=== PATIENT | female | born 1930 | race Caucasian/White ===

== ENCOUNTER 2017-09-19 14:26 | Emergency (ER) | payer MEDICARE, MEDICAID ==
[2017-09-19] MEDS ORDERED: Ondansetron 4 MG/2 ML SDV IVPUSH ONE (15:13)
[2017-09-19] MEDS ORDERED: HYDROmorphone 2 MG/ML SDV IVPUSH ONE ×2 (15:13→15:33)
[2017-09-19] MEDS ORDERED: Sodium Chloride 0.9% 500 ML IV ONE (15:15)
[2017-09-19] MEDS ORDERED: Isosorbide Mononitrate 30 MG Tab.ER PO ONE (15:24)
[2017-09-19] MEDS: Sodium Chloride 0.9% 1,000 ML IV SCH ×2 (15:43→16:12)
[2017-09-19] MEDS ORDERED: Iopamidol 755 Mg/ML 100 ML Bottle IV ONE (16:00)
[2017-09-19] MEDS ORDERED: Diatrizoate Meglumine/Diatrizoate Sodium 37% 30 ML Bottle PO SCH (16:00)
[2017-09-19] MEDS ORDERED: Sodium Chloride 0.9% 1,000 ML IV SCH (16:15)
[2017-09-19] MEDS ORDERED: Ertapenem 1 GM in Sodium Chloride 0.9% 50 ML IV ONE (18:27)
[2017-09-19] MEDS ORDERED: diphenhydrAMINE 50 MG/ML SDV IVPUSH ONE (18:29)
--- NOTE | 2017-09-20 09:47 | CT ---
INDICATION: Abdominal mesh surgery 1990 for hernia, right lower quadrant and right upper quadrant abdominal pain, guarding, rebound, suggestion of peritonitis, question bowel obstruction, torsion or strangulation, ischemia. CT ABDOMEN AND PELVIS WITH CONTRAST: Spiral 2.5-mm axial sections were obtained through the abdomen and pelvis with oral and IV contrast (100 mL Isovue -370 at 1.5 mL per second), with sagittal and coronal reconstructions, 2017. No comparison study was available. Total Exam DLP = 1548.59 mGy-cm. The lower lung gustafson and pleural spaces visualized showed no evidence of a definite active infiltrate or effusion. There appears to be free air in the abdomen, compatible with ruptured viscus - bowel perforation - correlate clinically. Upright chest x-ray will be obtained for further evaluation after discussion with Dr. Bruce. The heart appears slightly enlarged with coronary artery calcifications. The liver appears to be grossly normal. However, at the gallbladder, there is abnormality with multiple calculi, thickening of the wall, and pericholecystic fat stranding and fluid, suggesting acute cholecystitis. A minimal amount of fluid extends into the paracolic gutter on the right. There is a gas bubble at the gallbladder, which could be within the gallbladder or possibly represent free air. If within the gallbladder, it may represent emphysematous infection. The appendix appeared normal. No definite evidence of bowel obstruction was identified, despite the apparent presence of a large amount of free air in the abdomen. Gas and stool is noted in the rectum and air is scattered throughout the colon. The spleen was unremarkable. The pancreas is markedly fatty replaced. The common bile duct did not appear to be enlarged. There is a 15.6-mm low-density lesion in the left adrenal, which may represent an adrenal adenoma. However, follow-up is recommended, since its density is relatively high at about 45 Hounsfield units. Multiple cystic structures are noted at the kidneys - basically one for each kidney - in the upper pole on the right posteriorly 21-mm cystic structure is noted and in the upper pole medial cortex exophytically, there is approximately a 1.25-cm purely cystic appearing lesion. Areas of cortical excavation are noted at the kidneys, compatible with scarring, most likely from bouts of pyelonephritis. An additional tiny cyst is suggested off the mid pole posteromedial cortex of the right kidney. Calcifications are noted in the aorta, celiac axis, superior mesenteric artery, renal arteries, and iliac arteries. Sigmoid diverticulosis and descending diverticulosis, as well as transverse diverticulosis are suggested, without definite evidence of diverticulitis. There is a moderate amount of free fluid in the pelvis, compatible with localized ascites in that area. It may be on the basis of tracking from the right upper quadrant, however. No focal abnormality in the pelvis was identified to strongly suggest an etiology there for the fluid. No other mass lesions, organomegaly, or free fluid collections were identified in the abdomen or pelvis. IMPRESSION: 1. Possible acute cholecystitis with peritonitis and ascites. 2. Free air compatible with ruptured viscus - perforation of the bowel. Exact site indeterminate. Suspect anterior loops of bowel and with diverticulosis coli, suspect a ruptured diverticulum as the etiology. 3. ASD. 4. Cystic changes and scarring of the kidneys. 5. Degenerative changes, disk disease, compression fracture of indeterminate age lumbosacral spine, and thoracolumbar spine degenerative changes. 6. Diverticulosis coli without definite evidence of diverticulitis. 7. ASHD with suggestion of mild cardiomegaly. CT PELVIS: Examination of the pelvis was obtained by CT, as noted above, and revealed the gallbladder to still be visualized in the upper pelvis with evidence of cholecystitis and pericholecystic fluid and peritonitis. Arterial calcifications are noted. Free air is suggested. Perforation of bowel is strongly suggested secondarily. Diverticulosis coli, without definite evidence of diverticulitis is noted. Fluid in the pelvis is noted, compatible with ascites, and may be on the basis of cholecystitis, but should be correlated clinically. Report was called to Dr. Bruce at 1650 hours, 09/19/2017. [facility]
--- NOTE | 2017-09-20 16:39 | CR ---
INDICATION: Free air above diaphragm? CHEST: A single upright view of the chest was obtained and revealed what appears to be free air in the abdomen, well below the diaphragm leaves. The heart is enlarged. The aorta is tortuous and calcified. Pulmonary vasculature is prominent and congested, compatible with CHF. Shoulder prosthesis is noted on the right. IMPRESSION: ASHD with cardiomegaly and CHF. MTDD
--- NOTE | 2017-09-21 15:27 | ER ---
DATE SEEN: 09/19/2017 TIME SEEN: The patient was seen at 1440 hours. HISTORY OF PRESENT ILLNESS: The patient is a resident of [facility] who had onset of severe sharp abdominal right upper quadrant pain at 11:30 a.m. this morning. The pain radiated to her shoulder, but she states she has symptoms in her shoulder when she has anxiety. In fact, she has had pain like this in the past which was very symptomatic when she would have anxiety. She denies eating unusual food. Denies fever, chills, cough, sore throat, or lightheadedness. She denies any nausea, vomiting, or diarrhea. No blood in the stool or black tarry stool, or GERD or hepatitis or vomiting. No hematochezia or hemoptysis. PAST MEDICAL HISTORY: She has a past medical history of: 1. Presbycusis. 2. Glaucoma. The glaucoma was not treated because she could not lay down for surgery. 3. Asthma. 4. Hypertension. 5. Had mesh in her abdomen for surgery in the past. 6. Bilateral cataracts, surgery not performed, but she has cataracts. 7. Osteoarthritis of hips and knees, so severe, which precludes her from walking or even doing surgery because she is too much of a surgical risk. 8. Incontinence of urine. 9. Anxiety and nerves. 10.Pain in her feet and lower extremities (peripheral neuropathy, peripheral artery disease, stasis dermatitis, lymphedema). 11.No history of chest pain or angina. PHYSICAL EXAMINATION: VITAL SIGNS: Blood pressure 206/87, came down to 186/68. 206/87 was present when she had the hypertension event. Respiratory rate 16, 97% oxygen saturation, pulse 77, and temperature 36.4 degrees. The patient is 83.91 kg and BMI is 33.8 kg/m2. HEENT: The patient is hard of hearing. She sits up. She does not lay down because it is difficult for her to breathe if she lays down. She has mild hair loss. She is 87 years old, pretty articulate even though she has slight decreased hearing. She is wearing glasses. TMs negative. Pharynx without abnormality. Teeth are in relatively good condition. No mandibular pain. NECK: No cervical adenopathy, thyromegaly, or masses in the neck. LUNGS: Clear without rales, rhonchi, or wheezes. HEART: S1, S2. No irregular rate or rhythm. No murmur. ABDOMEN: Marked pain and more distention, marked percussion tympany. Bowel sounds are present. No tinkles noted. Markedly distended, marked pain with moderate rebound, marked guarding. The patient has difficulty sitting up because she has so much pain in lower abdomen (that is where she had her mesh according to the basis of her impression). RECTAL: Not performed. LOWER EXTREMITIES: Without pedal edema. Deep tendon reflexes hypoactive in lower extremities. NEUROLOGICAL: Cranial nerves 2 through 12 intact. Hearing decreased. IMAGING DATA: CAT scan was performed, demonstrated pericholecystic fat stranding with many gallstones, atrophy of the pancreas, common bile duct is mildly dilated. No intrahepatic disease. She has gas noted and multiple free air noted in the abdomen. No evidence for obstructive bowel disease. LABORATORY DATA: White count 24,000, with PMNs 87, bands 2, lymphocytes 3, monocytes 8, hemoglobin 15, platelets 426,000 (thrombocytosis). Electrolytes: sodium 137, potassium 4.7, chloride 99, bicarb 30, BUN 25, and creatinine 1.1. GFR 47. BUN/creatinine ratio 22.7 (mild dehydration). Glucose - reactive glucose elevation 170. Lactic acid is normal 1.4. Calcium 9.4. Troponin less than 0.017. Urinalysis appears to be a soiled specimen, purposely I did not do a cath specimen. 15 ketones, large occult blood, 100 rbc's, 0-5 wbc's, many bacteria, but few squamous cells. ASSESSMENT: Possible asymptomatic bacteriuria. The patient has not had symptoms. The patient's status was discussed with Dr. Casas. It is felt that because she had the gangrene and gangrenous gallbladder, and the risk of having a need to be on a respirator, and also need arterial lines with potential for sepsis, I felt that our [facility] [place] would not have the services available for the patient. The patient subsequently was transferred to [facility] in [place]. Dr. Foote was called and discussed, the patient is to go directly to the emergency room. She will go from there directly to surgery. DIAGNOSES: 1. Cholecystitis with cholelithiasis with gangrenous gallbladder with free air in the abdomen, possible gangrenous involvement of the duodenum. 2. Obesity. 3. Hypertension. 4. Hypothyroidism, treated. 5. No evidence for dementia. 6. Thrombocytosis. 7. Bandemia. 8. Leukocytosis with bandemia. 9. Cataracts. 10.Glaucoma. 11.Hypertension. 12.History of asthma, not evident on exam. 13.On examination, bilateral superficial upper 2/3rd stocking distribution of erythema that is pink with marked induration, irregular scarring of the skin with induration - lymphedema. No suggestion of infection. 14.Arthrogryposis. 15.Incontinence, etiology indeterminate. 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 PLAN: The patient is transferred. Advised to give a dose of imipenem, but we did not have that in our services, consequently she is given ertapenem 1 g IV. She has history of allergies to penicillin. Despite this, ertapenem was given. A dose of 50 mg Benadryl IV before the ertapenem was given. IV flush of fluids, she received almost a 1000 mL of normal saline in ED. She has no sign of sepsis, but she has a risk of sepsis present. ADDITIONAL DIAGNOSES: 1. Mesh placement for hernia in the past. 2. Obesity. 3. Osteoarthritis hips, she is a surgical risk including bilateral hip surgery, but she needs to have that done. She has significant crepitus in her knees, with need for total arthroplasty of the knees also. The patient's status was discussed with Dr. Casas and discussed with Dr. Foote. /[id number] 2010 [id number] YOAN/REHAN
== END 2017-09-19 18:45 ==
LOC: FB.ED 14:26
DX: K80.12 Calculus of gallbladder with acute and chronic cholecystitis without obstruction (principal); I10 Essential (primary) hypertension; E03.9 Hypothyroidism, unspecified; D47.3 Essential (hemorrhagic) thrombocythemia; D72.825 Bandemia; Q68.8 Other specified congenital musculoskeletal deformities; H26.9 Unspecified cataract; H40.9 Unspecified glaucoma; E66.9 Obesity, unspecified
CPT/HCPCS: 36415; 71045; 74177; 80053; 81001; 83605; 84484; 85025; 96361; 96374; 96375; 99285; A9270; J1170; J1200; J1335; J2405; J7040; J7050; Q9967; 99284; J7030